=== PATIENT | male | born 1975 | race Caucasian/White ===

== ENCOUNTER 2017-09-04 21:05 | Emergency (ER) | payer BC ==
[~2017-09-04] VITALS: Ht 185.4 cm; Wt 97.9 kg
[2017-09-04 21:32] VITALS: BP 136/89
[2017-09-04] MEDS ORDERED: rabies immune globulin/PF 150 unit/ml inj IM ONE (21:45)
[2017-09-04] MEDS ORDERED: rabies vaccine (PCEC)/PF 2.5 unit kit IM ONE (21:45)
[2017-09-04] MEDS ORDERED: LIDOcaine 1.5% w/epinephrine 1:200,000 5ml ampul IJ ONE (21:45)
[2017-09-04] MEDS ORDERED: amox tr/potassium clavulanate 875/125mg TAB PO ONE (21:45)
[2017-09-04] MEDS ORDERED: TETanus/Pertussis (Acell)/Diphther VAC/PF (Tdap-Adult) 0.5ml syringe IM ONE (21:45)
[2017-09-04] MEDS ORDERED: IBUP-1985 PO (22:43)
[2017-09-04] MEDS ORDERED: AMOX-422 PO (22:43)
[2017-09-04] MEDS ORDERED: rabies immune globulin/PF 150 unit/ml inj IMVAC ONE (22:52)
== END 2017-09-05 00:25 | disposition home or self-care (01) ==
LOC: ER 21:06
DX: S61.512A Laceration without foreign body of left wrist, initial encounter (principal); S61.012A Laceration without foreign body of left thumb without damage to nail, initial encounter; F17.200 Nicotine dependence, unspecified, uncomplicated; F12.10 Cannabis abuse, uncomplicated; Z88.2 Allergy status to sulfonamides; W54.0XXA Bitten by dog, initial encounter; Y93.89 Activity, other specified; Y92.89 Other specified places as the place of occurrence of the external cause; Y99.8 Other external cause status
CPT/HCPCS: 12002; 90375; 90471; 90472; 90675; 90715; 96372; 99284; A6449; J3490

== ENCOUNTER 2024-04-16 19:53 | Emergency (ER) | payer BC ==
[~2024-04-16] VITALS: Ht 185.4 cm; Wt 99.1 kg
[~2024-04-16 19:53] MED LIST: IBUP-1985 PO
[2024-04-16 20:38] LABS: BILIRUBIN,URINE SMALL (Neg); CLARITY,URINE CLEAR (Clear); COLOR,URINE YELLOW (Yellow); GLUCOSE, URINE NEGATIVE (Neg); KETONES,URINE NEGATIVE (Neg); LEUKOCYTE ESTERASE ,URINE TRACE (Neg); NITRITES, URINE NEGATIVE (Neg); OCCULT BLOOD,URINE SMALL (Neg); PH,URINE 7.5 (4.8-8.0); PROTEIN,URINE TRACE mg/dl (Neg)
[2024-04-16 20:39] VITALS: PULSE 89; TEMP 98.8; O2SAT 100
[2024-04-16 20:40] LABS: UA COLLECTION TYPE CLN CATCH MIDSTREAM
[2024-04-16 20:44] LABS: MUCUS STRANDS MANY /LPF (Neg); SQUAMOUS EPITHELIAL CELL,UR FEW /LPF (FEW); WBC,URINE 0-4 /HPF (0-4)
[2024-04-16 20:45] LABS: BACTERIA,URINE FEW /HPF (Neg); TRANSITIONAL EPI CELLS,URINE FEW /HPF
[2024-04-16 20:51] LABS: AMORPHOUS PHOSPHATES 2+
[2024-04-16 20:58] LABS: BASOPHILS % (AUTO) 0.4 % (0-1); EOSINOPHILS % (AUTO) 0.6 % (0-6); HEMATOCRIT 44.4 % (42.0-52.0); LYMPHOCYTES # (AUTO) 0.6 X10'3 (1.1-4.8); LYMPHOCYTES % (AUTO) 8.8 % (21-51); MEAN CORPUSCULAR HEMOGLOBIN 30.3 PG (27.0-31.0); MEAN CORPUSCULAR HGB CONC 33.8 g/dL (33.0-36.5); MEAN CORPUSCULAR VOLUME 89.7 FL (78-98); MEAN PLATELET VOLUME 6.7 FL (7.4-10.4); MONOCYTES # (AUTO) 0.7 X10'3 (0-0.9); MONOCYTES % (AUTO) 11.5 % (2-12); NEUTROPHILS % (AUTO) 78.7 % (42-75); PLATELET COUNT 145 X10'3 (140-440); RED BLOOD COUNT 4.94 X10'6 (4.70-6.10); RED CELL DISTRIBUTION WIDTH 13.3 % (11.5-14.5); WHITE BLOOD COUNT 6.3 X10'3 (4.5-11.0)
[2024-04-16 21:12] LABS: ALANINE AMINOTRANSFERASE 146 U/L (12-78); ALBUMIN 3.5 G/DL (3.4-5.0); ALBUMIN/GLOBULIN RATIO 0.9 (1.1-1.5); ALKALINE PHOSPHATASE 129 IU/L (46-116); ANION GAP 8 (8-16); ASPARTATE AMINO TRANSFERASE 83 U/L (10-37); BILIRUBIN,TOTAL 1.2 MG/DL (0.1-1.0); BLOOD UREA NITROGEN 10 MG/DL (7-18); BUN/CREATININE RATIO 11.5 (10.0-20.0); CALCIUM 9.2 MG/DL (8.5-10.1); CHLORIDE 102 MMOL/L (99-107); CREATININE 0.87 MG/DL (0.60-1.10); GLUCOSE 108 MG/DL (70-104); LIPASE 16 U/L (16-77); POTASSIUM 3.9 MMOL/L (3.5-5.1); SODIUM 138 MMOL/L (135-145); TOTAL CARBON DIOXIDE 28.1 MMOL/L (24-32); TOTAL PROTEIN 7.4 G/DL (6.4-8.2); eCRCL 120 ML/MIN; eGFR > 90 ML/MIN
[2024-04-16] MEDS ORDERED: iohexol 300mg/ml 100ml inj. ONE (21:23)
[2024-04-16] MEDS ORDERED: AMOX-115 PO (23:27)
[2024-04-16] MEDS: amox tr/potassium clavulanate 875/125mg TAB PO ONE (23:55)
[2024-04-16] MEDS: ondansetron 4mg rapidly disintigrating tab PO ONE (23:55)
[2024-04-17 00:18] VITALS: BP 126/82; RESP 16
== END 2024-04-17 00:16 | disposition home or self-care (01) ==
LOC: ER 19:53
DX: K57.92 Diverticulitis of intestine, part unspecified, without perforation or abscess without bleeding (principal); F12.90 Cannabis use, unspecified, uncomplicated; Z88.2 Allergy status to sulfonamides; Z79.1 Long term (current) use of non-steroidal anti-inflammatories (NSAID)
CPT/HCPCS: 36415; 74177; 76700; 80053; 81001; 83690; 85025; 87088; 99285; Q9967